=== PATIENT | male | born 1945 | race Caucasian/White ===

== ENCOUNTER → 2016-08-09 | Outpatient (CLI) | payer MEDICAID, MEDICARE, OTHER ==
--- NOTE | 2016-08-09 11:11 | Diagnostic Imaging Report ---
Indications: Left wrist injury, pain and swelling Technique: 3 views left wrist Findings: Comparison: 09/21/13 There is a comminuted fracture through the distal radial metaphysis with partial bone width dorsal displacement and mild to moderate dorsal angulation of the main distal fragment. A significant amount of periosteal and endosteal callus formation is present. There is a fracture through the base of the ulnar styloid with complete bone width radial displacement of the distal fragment. The distal radial ulnar joint appears mildly widened. Ulnocarpal joint space appears mildly narrowed. Marked widening of the scapholunate space again noted. Lateral view demonstrates increased angulation abnormalities between the distal radius, proximal and distal carpal rows. Running soft tissues are swollen. IMPRESSION: Subacute fractures of the distal radius and ulna as described, Colles' fracture complex, non-reduced, with partial healing of distal radial fracture. Suggestion of disruption of distal radial ulnar joint, ulnocarpal joint Chronic disruption of the scapholunate ligament. Development of/increase in appearance of dorsal intercalated segment instability on lateral view. Orthopedic surgery consultation recommended.
== END | disposition home or self-care (01) ==
LOC: RAD 10:06
DX: S52.532A Colles' fracture of left radius, initial encounter for closed fracture (principal); S52.202A Unspecified fracture of shaft of left ulna, initial encounter for closed fracture; X58.XXXA Exposure to other specified factors, initial encounter; Y93.9 Activity, unspecified; Y92.9 Unspecified place or not applicable